=== PATIENT | male | born 1985 | race Caucasian/White ===

== ENCOUNTER 2016-12-22 11:09 | Emergency (ER) | payer MEDICAID ==
[~2016-12-22] VITALS: Ht 172.7 cm; Wt 77.3 kg
[2016-12-22 11:11] VITALS: TEMP 98.1
[2016-12-22 11:50] LABS: BASO % 0.4 % (0.0-2.0); EOS # 0.2 (0.0-0.7); EOS % 2.6 % (0-4.0); GRAN # 4.5 (1.4-6.5); GRAN % 61.1 % (42.2-75.2); HEMATOCRIT 44.5 % (42.0-52.0); HEMOGLOBIN 15.3 g/dl (13.5-18.0); LYMPH # 1.6 (1.2-3.4); LYMPH % 21.6 % (20.0-51.0); MEAN CELL VOLUME 89 fl (80.0-100.0); MEAN CORPUSCULAR HEMOGLOBIN 30 pg (27.0-31.0); MEAN CORPUSCULAR HGB CONC 34 g/dl (33.0-37.0); MEAN PLATELET VOLUME 12.6 fl (7.4-10.4); PLATELET COUNT 137 K/mm3 (130-400); RED BLOOD COUNT 5.03 M/mm3 (4.20-5.60); REDCELL DISTRIBUTION WIDTH-CV 12.7 % (11.5-14.5); WHITE BLOOD COUNT 7.4 K/mm3 (4.8-10.8)
[2016-12-22 12:10] LABS: ALANINE AMINOTRANSFERASE 168 U/L (21-72); ALBUMIN 4.2 gm/dL (3.5-5.0); ALKALINE PHOSPHATASE 90 U/L (50-136); ANION GAP 10 mmol/L (7-16); BILIRUBIN,TOTAL 0.8 mg/dL (0.0-1.0); BLOOD UREA NITROGEN 17 mg/dL (9-20); CALCIUM 9.2 mg/dL (8.4-10.2); CARBON DIOXIDE 28 mmol/L (22-30); CHLORIDE 101 mmol/L (98-107); CREATININE, serum 0.78 mg/dL (0.66-1.25); GLUCOSE 107 mg/dL (74-106); MAGNESIUM 1.9 mg/dL (1.6-2.3); POTASSIUM 3.8 mmol/L (3.4-5.0); SODIUM 139 mmol/L (137-145); TOTAL PROTEIN 7.8 gm/dL (6.4-8.2)
[2016-12-22 12:18] LABS: C-REACTIVE PROTEIN < 0.5 mg/dL (0.0-0.9)
[2016-12-22] MEDS ORDERED: PREDNISONE10 MG PO (12:20)
[2016-12-22 12:40] VITALS: BP 113/67; PULSE 61
== END 2016-12-22 12:40 | disposition home or self-care (01) ==
LOC: COL.ER 11:09
PROVIDERS: Emergency Medicine
DX: G51.0 Bell's palsy (principal)
CPT/HCPCS: J7512

== ENCOUNTER 2021-09-18 17:57 | Observation (INO) | payer SELFPAY ==
[~2021-09-18] VITALS: Wt 77.3 kg
[~2021-09-18 17:57] MED LIST: PREDNISONE10 MG PO
[2021-09-18 18:56] LABS: EOS # 0.1 K/mm3 (0.0-0.7); EOS % 2.8 % (0-4.0); GRAN # 2.5 K/mm3 (1.4-6.5); GRAN % 56.7 % (42.2-75.2); HEMOGLOBIN 11.4 g/dl (13.5-18.0); LYMPH # 1.2 K/mm3 (1.2-3.4); LYMPH % 27.8 % (20.0-51.0); MEAN CELL VOLUME 80 fl (80.0-100.0); MEAN CORPUSCULAR HEMOGLOBIN 28 pg (27.0-31.0); MEAN CORPUSCULAR HGB CONC 35 g/dl (33.0-37.0); MEAN PLATELET VOLUME 12.1 fl (7.4-10.4); MONO # 0.5 K/mm3 (0.1-0.6); MONO % 12.5 % (1.7-9.3); PLATELET COUNT 121 K/mm3 (130-400); RED BLOOD COUNT 4.06 M/mm3 (4.20-5.60); REDCELL DISTRIBUTION WIDTH-CV 12.3 % (11.5-14.5)
[2021-09-18 19:01] LABS: HEMATOCRIT 32.5 % (42.0-52.0)
[2021-09-18 19:11] LABS: ALBUMIN 3.8 gm/dL (3.5-5.0); BILIRUBIN,TOTAL 0.5 mg/dL (0.2-1.2); CALCIUM 8.9 mg/dL (8.4-10.2); CREATININE, serum 0.83 mg/dL (0.72-1.25); POTASSIUM 3.7 mmol/L (3.5-4.5); TOTAL PROTEIN 9.3 gm/dL (6.2-8.1)
[2021-09-18 20:20] LABS: HIV 1/2 Antibodies Preliminary Positive; HIV-1p24 Antigen Non-Reactive
--- NOTE | 2021-09-18 22:04 | NUR ---
ARRIVED TO UNIT, AWAKE, ALERT, ORIENTED X 4, ABLE TO MAKE NEEDS KNOWN, UPDATED ON PLAN OF CARE. DENIES NEEDS AT THIS TIME.
[2021-09-19 00:29] VITALS: BP 109/64; PULSE 93; TEMP 98.4
[2021-09-19 02:27] VITALS: BP 111/64; PULSE 84; TEMP 98.8
[2021-09-19 04:46] VITALS: BP 99/54; PULSE 83; TEMP 98.8
[2021-09-19 05:55] VITALS: BP 99/54
--- NOTE | 2021-09-19 06:00 | NUR ---
THIS RN CALLED DR. TEJEDA AT 0600 ON 09/19/21 FOR CONSULT. NO ANSWER WILL TELL DAY SHIFT NURSE TO TRY AGAIN DUE TO SILENCE AND NO OPTION TO LEAVE VOICEMAIL.
--- NOTE | 2021-09-19 06:08 | NUR ---
PT HAD UNEVENTFUL NIGHT. PT STATED LIDOCAINE SWISH WAS HELPFUL AND HE WAS ABLE TO FALL ASLEEP. PT REMAINED PLEASANT AND COOPERATIVE. CALL LIGHT IN REACH, BED IN LOWEST POSITION, WHEELS LOCKED. NO OTHER NEEDS AT THIS TIME.
[2021-09-19 06:40] LABS: BASO % 0.3 % (0.0-2.0); EOS # 0.1 K/mm3 (0.0-0.7); EOS % 1.5 % (0-4.0); GRAN % 50.9 % (42.2-75.2); HEMOGLOBIN 10.5 g/dl (13.5-18.0); LYMPH # 1.3 K/mm3 (1.2-3.4); LYMPH % 32.7 % (20.0-51.0); MEAN CELL VOLUME 80 fl (80.0-100.0); MEAN CORPUSCULAR HEMOGLOBIN 28 pg (27.0-31.0); MEAN CORPUSCULAR HGB CONC 35 g/dl (33.0-37.0); MEAN PLATELET VOLUME 11.9 fl (7.4-10.4); MONO # 0.6 K/mm3 (0.1-0.6); MONO % 14.3 % (1.7-9.3); PLATELET COUNT 102 K/mm3 (130-400); REDCELL DISTRIBUTION WIDTH-CV 12.2 % (11.5-14.5)
[2021-09-19 06:47] LABS: HEMATOCRIT 30.3 % (42.0-52.0)
[2021-09-19 07:08] LABS: ALBUMIN 3.5 gm/dL (3.5-5.0); BILIRUBIN,TOTAL 0.6 mg/dL (0.2-1.2); CALCIUM 9.3 mg/dL (8.4-10.2); CREATININE, serum 0.77 mg/dL (0.72-1.25); POTASSIUM 3.7 mmol/L (3.5-4.5); TOTAL PROTEIN 8.7 gm/dL (6.2-8.1)
[2021-09-19 07:40] VITALS: BP 104/58; PULSE 68; TEMP 98.8
--- NOTE | 2021-09-19 08:18 | NUR ---
Assessment completed, alert/oriented, vital signs stable, reports continued sore throat/ mouth has some sores in creases that are not open and throat irritated/ white exudate noted on tongue, ID consult placed and attempted to notify with no answer this morning, IV Acyclovir infusing, patient independent in his room and denies other needs at this time
[2021-09-19] MEDS ORDERED: DIFLUCAN200 MG PO (11:31)
[2021-09-19] MEDS ORDERED: LIDOCAINE HCL100 M1 MM (11:31)
--- NOTE | 2021-09-19 11:59 | NUR ---
Plan is to return home. Patient reports that he resides in and will have a friend picking him up. Patient reports that he does not have any funds for medications. EZ discussed voucher with client. Patient and Dr. Thompson. EZ contacted [facility] for medications voucher and priced Lidocaine 20.08 and Diflucan 19.69. Educated patient about voucher at [facility] and Patient signed voucher. Patient's DC'ed
--- NOTE | 2021-09-19 13:10 | NUR ---
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
[2021-09-21 10:10] LABS: CD4 CD8 Ratio 0.11 (1.00-2.90); CD4 Helper T Cell 7.2 % (29.0-59.0)
== END 2021-09-19 14:19 | disposition home or self-care (01) ==
LOC: COL.ER 17:57 → MEDICAL 21:00
PROVIDERS: Student in an Organized Health Care Education/Training Program; ADMIT Internal Medicine
DX: B20 Human immunodeficiency virus [HIV] disease (principal); B37.0 Candidal stomatitis; J02.9 Acute pharyngitis, unspecified
CPT/HCPCS: G0378; J1450